=== PATIENT | female | born 1950 | race African-American/Black ===

== ENCOUNTER 2018-05-01 15:00 | Outpatient (RCR) | payer OTHER | END 2018-05-08 | disposition home or self-care (01) | LOC: WSPT | DX: M54.5 Low back pain (principal); M54.10 Radiculopathy, site unspecified ==

== ENCOUNTER 2018-12-31 10:00 | Outpatient (RCR) | payer MEDICARE, OTHER | END 2019-01-01 10:19 | disposition home or self-care (01) | LOC: WSC 10:00 | DX: M54.5 Low back pain (principal) ==

== ENCOUNTER → 2021-07-04 | Outpatient (CLI) | payer MEDICARE, OTHER | LOC: MHCPAIN 10:38 | DX: M47.816 Spondylosis without myelopathy or radiculopathy, lumbar region (principal); M54.16 Radiculopathy, lumbar region; M70.62 Trochanteric bursitis, left hip; M53.3 Sacrococcygeal disorders, not elsewhere classified | CPT/HCPCS: G0463 ==

== ENCOUNTER → 2021-08-01 | Outpatient (CLI) | payer MEDICARE, OTHER | LOC: MHCPAIN 11:13 | DX: M47.817 Spondylosis without myelopathy or radiculopathy, lumbosacral region (principal); M53.3 Sacrococcygeal disorders, not elsewhere classified; M25.552 Pain in left hip; M70.62 Trochanteric bursitis, left hip | CPT/HCPCS: 20610; G0260; A9585; J0461; J1040 ==

== ENCOUNTER → 2021-08-15 | Outpatient (CLI) | payer MEDICARE, OTHER | LOC: MHCPAIN 10:58 | DX: M47.816 Spondylosis without myelopathy or radiculopathy, lumbar region (principal); M54.16 Radiculopathy, lumbar region; M70.62 Trochanteric bursitis, left hip; M53.3 Sacrococcygeal disorders, not elsewhere classified | CPT/HCPCS: G0463 ==

== ENCOUNTER → 2021-09-12 | Outpatient (CLI) | payer MEDICARE, OTHER | LOC: MHCPAIN 14:29 | DX: M47.817 Spondylosis without myelopathy or radiculopathy, lumbosacral region (principal); M53.3 Sacrococcygeal disorders, not elsewhere classified; M54.16 Radiculopathy, lumbar region | CPT/HCPCS: G0463 ==